=== PATIENT | female | born 1980 | race Caucasian/White ===

== ENCOUNTER 2025-07-12 09:14 | Outpatient (CLI) | payer BC, SELFPAY ==
--- NOTE | ~2025-07-12 | US_ITS ---
ULTRASOUND ABDOMEN LIMITED (RIGHT UPPER QUADRANT) Clinical History: R74.01 - Elevation of levels of liver transaminase levels Comparison: None Technique: Right upper quadrant sonography Findings: Liver: Normal size. Echogenic. No intrahepatic biliary ductal dilatation. Normal hepatopedal flow main portal vein. Common Duct: Normal caliber. 4 mm. Gallbladder: No stones. No wall thickening. No pericholecystic fluid. Pancreas: Unremarkable. IMPRESSION: 1. Hepatic steatosis and/or hepatocellular disease. Reviewed, dictated and finalized at location R. [facility] [employer]
== END 2025-07-12 09:15 | disposition home or self-care (01) ==
LOC: MICIMG 09:15
DX: K76.0 Fatty (change of) liver, not elsewhere classified (principal); K76.89 Other specified diseases of liver; R74.01 Elevation of levels of liver transaminase levels
CPT/HCPCS: 76705